=== PATIENT | female | born 2000 | race Two or more races ===

== ENCOUNTER 2021-01-09 21:01 | Emergency (ER) | payer MEDICAID ==
[~2021-01-09] VITALS: Ht 165.1 cm; Wt 62.5 kg
[2021-01-09] MEDS ORDERED: AMOXICILLIN/CLAV 875-125MG TABLET ONE (23:53)
[2021-01-09] MEDS ORDERED: DEXAMETHASONE 4 MG TABLET ONE (23:53)
[2021-01-10] MEDS ORDERED: DEXAMETHASONE 4 MG TABLET PO ONE
[2021-01-10] MEDS ORDERED: AMOXICILLIN/CLAV 875-125MG TABLET PO ONE
[2021-01-10] MEDS ORDERED: maalox/diphenh/lido/sucralfate 5 ML PO PRN
[2021-01-10 00:01] VITALS: BP 112/71
== END 2021-01-10 01:16 | disposition home or self-care (01) ==
LOC: ED 23:59
DX: J36 Peritonsillar abscess (principal); F17.210 Nicotine dependence, cigarettes, uncomplicated
CPT/HCPCS: 87081; 87880; 99283; 99406